=== PATIENT | male | born 1970 | race Caucasian/White ===

== ENCOUNTER 2021-10-23 03:00 | Emergency (ER) | payer OTHER ==
[~2021-10-23] VITALS: Ht 177.8 cm; Wt 87.5 kg
[2021-10-23 03:05] VITALS: BP 185/113
--- NOTE | 2021-10-23 03:05 | NUR ---
TO CHAIR C AMBULATORY WITH [facility] , FOR MEDICAL CLEARANCE , PREBOOK.
--- NOTE | 2021-10-23 03:15 | NUR ---
Dr. La examining patient.
[2021-10-23 03:29] VITALS: BP 152/89
--- NOTE | 2021-10-23 03:29 | NUR ---
Patient D/C to custody with [facility].
== END 2021-10-23 03:29 ==
LOC: MED 03:00
DX: K46.9 Unspecified abdominal hernia without obstruction or gangrene (principal); Z02.89 Encounter for other administrative examinations; Z98.890 Other specified postprocedural states
CPT/HCPCS: 99283

== ENCOUNTER 2022-02-10 10:46 | Emergency (ER) | payer OTHER ==
[~2022-02-10] VITALS: Ht 177.8 cm; Wt 86.2 kg
[2022-02-10 11:01] VITALS: BP 163/100
--- NOTE | 2022-02-10 11:01 | NUR ---
51 y/o male bib pd, c/o hernia mass in abd, 5/10 pain at this time. a&ox4, ambulates with steady gait. denies n/v/d. pmh: hernia, htn nka med: denies
--- NOTE | 2022-02-10 12:34 | NUR ---
Patient discharged with v/s stable. Written and verbal after care instructions given and explained. Patient verbalized understanding. with Police in custody. All questions addressed prior to discharge. Advised to follow up with PMD.
[2022-02-10 12:39] VITALS: BP 163/100
== END 2022-02-10 12:39 ==
LOC: MED 10:46
DX: K43.9 Ventral hernia without obstruction or gangrene (principal)
CPT/HCPCS: 99283